=== PATIENT | female | born 1945 | race Caucasian/White ===

== ENCOUNTER 2020-02-18 12:02 | Outpatient (CLI) | payer BC ==
[2020-02-18] VITALS (21 sets, daily range): BP systolic 83–141; BP diastolic 49–79
[~2020-02-18 12:02] MED LIST: ALBU8HFA PO; CALC600T69 PO; CELE-193 PO; CHOL100046 PO; DOCU-28 PO; FERR325T39 PO; FLUT16SP10 NS; ONDA4TAB12 PO; SIMV-42 PO
== END 2020-02-18 23:59 | disposition home or self-care (01) ==
LOC: CARD DIAG 12:02
PROVIDERS: ATTEND Internal Medicine Cardiovascular Disease
DX: R42 Dizziness and giddiness (principal)
CPT/HCPCS: 93660